=== PATIENT | female | born 1995 ===

== ENCOUNTER 2023-07-19 19:59 | Emergency (ER) | payer MEDICAID ==
[~2023-07-19] VITALS: Ht 170.2 cm; Wt 86.4 kg
[2023-07-19] MEDS: OXYMETAZOLINE HCL 0.05% 15 ML NASAL SPRAY NASAL ONE (22:45)
[2023-07-19] MEDS ORDERED: IBUP-1554 PO (22:57)
[2023-07-19] MEDS ORDERED: GUAIFDM PO (22:57)
[2023-07-19] MEDS ORDERED: ACET-66 PO (22:57)
[2023-07-19 23:00] VITALS: BP 127/72; PULSE 67; RESP 18; TEMP 98.3
== END 2023-07-19 23:05 | disposition home or self-care (01) ==
LOC: EMS 19:59
DX: J06.9 Acute upper respiratory infection, unspecified (principal); R04.0 Epistaxis; F17.210 Nicotine dependence, cigarettes, uncomplicated
CPT/HCPCS: 99282; Z7502; Z7610